=== PATIENT | female | born 1965 | race Caucasian/White ===

== ENCOUNTER 2016-11-21 11:34 | Observation (INO) | payer BC ==
[~2016-11-21] VITALS: Ht 157.5 cm; Wt 88.3 kg
--- NOTE | ~2016-11-21 | ECH ---
Transthoracic Echocardiography Report (TTE) Demographics Patient Name MG LAYNE Date of Study 11/22/2016 Patient Number [id number] Visit Number [id number] Date of 1965 Room Number 433 Accession Number [id number] Gender Female Age 51 year(s) Referring Kareem PICKERING Burn Crew Member Maryjane Easley [facility] Physician Regulo Arshad MD Physician Interpreting Dolores Grayson MD Molding And Trim Installer Physician Supervising Ordering Physician Kareem PICKERING MD/CARLITOS Rajput Nurse Stress Manager Decision Support Conclusions Summary Technically fair exam. The estimated left ventricular ejection fraction is 60-65%. Mild left ventricular hypertrophy. Diastolic assessment reveals Grade I diastolic dysfunction. The left atrium is mildly dilated by LA volume index measurement. Procedure Type of Study TTE procedure:Echo Complete SF. Procedure Date Date: 11/22/2016 Start: 09:38 AM Technical Quality: Adequate visualization Indications:Chest pain. Appropriate Use Criteria: 9 Height: 62 inches Weight: 190 pounds BSA: 1.87 m Rhythm: Within normal limits HR: 78 bpm BP: 128/71 mmHg M-Mode/2D Measurements LV Diastolic Dimension: 4.8 cm LV Systolic Dimension: 3.2 cm LV Septum Diastolic: 1 cm LV PW Diastolic: 1.2 cm AO Root Dimension: 2.76 cm Cardiac Output: 5.05 l/min LA Dimension: 3.5 cm Cardiac Index: 2.7 l/min*m LA volume index: 35 ml/m LVOT: 1.8 cm RV Base: 3 cm LVOT VTI: 25.46 cm RV Mid: 1.7 cm LV Stroke volume: 64.75 ml RV Length: 7.1 cm LV Stroke volume index: 34.63 ml/m Doppler Measurements AV Peak Velocity: 1.76 m/s MV Peak E-Wave: 0.78 m/s AV Peak Gradient: 12.39 mmHg MV Peak A-Wave: 0.89 m/s AV Mean Gradient: 6.3 mmHg MV E/A Ratio: 0.88 LVOT Peak Velocity: 1.26 m/s MV P1/2t: 57.3 msec AV Area (Continuity):2.14 cm MV Deceleration Time: 178.2 msec MV Area (PHT): 3.84 cm PV Peak Velocity: 0.9 m/s PV Peak Gradient: 3.24 mmHg RA Area: 12.88 cm Findings Left Ventricle The left ventricle is normal in size . Mild left ventricular hypertrophy. Diastolic assessment reveals Grade I diastolic dysfunction. Right Ventricle Normal right ventricle structure and function. Left Atrium The left atrium is mildly dilated by LA volume index measurement. Right Atrium Normal right atrial size. Mitral Valve Normal mitral valve structure and function. Aortic Valve The aortic valve was not well imaged. Tricuspid Valve Normal tricuspid valve structure and function. Pulmonic Valve The pulmonic valve is not well visualized. Pericardial Effusion No evidence of pericardial effusion. Miscellaneous Visualized portions of the aortic root and ascending aorta appear normal in size. Pleural Effusion No evidence of pleural effusion. Signature
--- NOTE | ~2016-11-21 | CST ---
Cardiac Perfusion Imaging Demographics Patient Name ROVERTO Trejo Gender Female Patient Number [id number] Race Visit Number [id number] Ethnicity Corporate ID Room Number 433 Accession Number [id number] Height 62 inches Date of 1965 Weight 190 pounds Age 51 year(s) BSA 1.87 m Referring Physician Rosario Arshad MD BMI 34.75 kg/m Interpreting Physician [facility] Date of study 11/22/2016 Dolores Grayson MD Supervising MD/MLP Wes Rose [facility] Technologist Micki Honeycutt Ordering Physician Kareem Rajput Stress Royce Cordovaen alarm technician Stress ECG Reading [facility] Nurse Mumtaz Ghotray Physician Dolores Javed The procedure was explained in detail to the patient. Risks, complications and alternative treatments were reviewed. Written consent was obtained. Medications Reviewed with Patient prior to Procedure. Procedure Procedure Type: Nuclear Stress Test:Exercise Procedure Start time: 11/22/2016 08:00 Indications: Chest pain, Hypertension, Family history of coronary artery disease and Tobacco use-current. Risk Factors The patient risk factors include:Current/Recent(w/in 1 year) tobacco use, treated hypertension and family history of premature CAD. Conclusions Summary Perfusion Images: The overall quality of the study is good. Left ventricular cavity is noted to be normal on the stress and rest studies. There is no evidence of abnormal lung activity. The right ventricle is not visualized and cannot be assessed. Stress SPECT images and Rest SPECT images demonstrate homogenous tracer distribution throughout the myocardium except for a decrease uptake in the area involving the anterior wall consistent with soft tissue attenuation. Gated SPECT imaging reveals normal myocardial thickening and wall motion. The left ventricular ejection fraction was calculated to be 80%. Impression ECG portion of stress test is clinically negative for ischemia by diagnostic criteria. Myocardial perfusion imaging is normal. The anterior wall matched defect is consistent with soft tissue attenuation. Overall left ventricular systolic function was normal without regional wall motion abnormalities. Compared to the prior study from 2013, the current study reveals no change . Stress Protocols Resting ECG Normal sinus rhythm. Resting HR:75 bpm Resting BP:118/78 mmHg Stress Protocol:Exercise - Justin Peak HR:153 bpm HR/BP product:[id number] Peak BP:186/80 mmHg Max exercise: 10 METS Predicted HR: 168 bpm % of predicted HR: 91 Test duration:08:06 min Reason for termination:Fatigue ECG Findings No ECG changes suggestive of ischemia. Arrhythmias No rhythm abnormality. Complications Procedure complication: None. Stress Interpretation Appropriate hemodynamic response to exercise. No significant ST-T wave changes with exercise. EKG portion is negative for ischemia by diagnostic criteria. The Lynhc Treadmill score was 8 .This corresponds to a low risk stress test. Imaging Results Summed scores - Summed stress score: 0 - Summed rest score: 0 - Summed difference score: 0 Stress ejection Ejection fraction:80 % EDV :89 ml ESV :18 ml Stroke volume :71 ml LV mass :126 gr Imaging Protocols Rest Stress Isotope:Tc99m Myoview IV Isotope: Tc99m Myoview IV Isotope dose:10.5 mCi Isotope dose:30.8 mCi Date:11/22/2016 06:30 Date:11/22/2016 08:00 Technique: SPECT Technique: Gated Supine SPECT Supine IV remains in place after procedure. Scan Time:45-60 minutes post Scan Time:15-30 minutes post injection injection Medical History Admission Data Admission date: 11/21/2016 Admission Time: 13:40 Hospital Status: Inpatient. Signatures
--- NOTE | 2016-11-22 15:13 | CO ---
ADMIT: 11/21/2016 RM/LOC: 433 [facility] MR#: [id number] [address] [address] [place] [address] Consultation SEX: F AGE: 51 : 1965 DATE OF CONSULTATION: 11/21/2016 ATTENDING PHYSICIAN: Luiz Ponce CONSULTING PHYSICIAN: Regulo Serna MD REASON FOR CONSULTATION: Chest pain. HISTORY OF PRESENT ILLNESS: Mg is a pleasant 51-year-old female, who I was asked to see in consultation by Dr. Ponce regarding chest pain. Mg has no prior cardiac history, but does have history of smoking and hypertension. She also has a family history of coronary artery disease with her father having NV in his 40s. He ultimately of cancer, though. She states that she has never had chest pain like this, but this morning she awoke, she stated it felt like a burning heartburn-type discomfort in her chest. She denied any shortness of breath. She denied any diaphoresis. She said nothing made it better. She got up, walked around, it did not make a difference, position did not make a difference and any medications did not help. After about 7 hours of chest pain, she was noted to present to the emergency room. There, her EKG was normal. Her cardiac enzymes were negative and she was admitted for rule out. PAST MEDICAL HISTORY: 1. Hypertension. 2. Smoking. PAST SURGICAL HISTORY: History of appendectomy, tonsillectomy, and hysterectomy. ALLERGIES: SKELAXIN, WHICH CAUSES A RASH. MEDICATIONS: She is on: 1. Lisinopril. 2. Losartan/hydrochlorothiazide 50/12.5 mg daily. SOCIAL HISTORY: She is . She has 5 children and 10 grandchildren. She does smoke. She denies any significant alcohol use other than occasional glass of wine. She denies any illicit drug use. FAMILY HISTORY: Positive for heart disease as described on her father's side and in her father at age 42. Denies any family history of diabetes. Her father also had cancer. REVIEW OF SYSTEMS: GENERAL: Denies fatigue, fever, chills, sweats, rash, or weight loss. EYES: Denies double vision, blurred vision, cataracts, or glaucoma. ENT: Denies hearing loss or problems with nose, mouth or throat. PULMONARY: Denies cough, sputum production, asthma, emphysema or bronchitis. Denies snoring loudly, wakefulness at night, or fatigue upon awakening. GASTROINTESTINAL: Denies heartburn or difficulty swallowing. No change in ADMIT: 11/21/2016 RM/LOC: 433 [facility] MR#: [id number] [address] [id number] [place] [address] Consultation SEX: F AGE: 51 : 1965 bowel habits. Denies dark or bloody stools. No history of ulcers, hiatal hernia, or gallbladder or liver disease. GENITOURINARY: Denies dysuria, hematuria, nocturia, urinary tract infection, or kidney stones. Denies history of renal insufficiency or failure. MUSCULOSKELETAL: Denies history of arthritis or gout. Denies muscle or joint pains. ENDOCRINE: Denies history of thyroid dysfunction or diabetes. HEMATOLOGIC: Denies history of anemia, easy bruising, or cancer. NEUROLOGIC: Denies chronic headaches, dizziness, syncope, stroke, seizures or numbness or tingling. PSYCHIATRIC: Denies history of mental illness or feelings of depression. PHYSICAL EXAMINATION: VITAL SIGNS: Blood pressure 128/71, pulse 75, temperature 98.7, respirations 16, oxygen 93% on room air. SKIN: [place], warm and dry. EYES: Sclerae clear. No xanthelasmas. ENT: Oral mucosa is pink and moist. No jugular venous distention or carotid bruits. CHEST: Respirations are even and unlabored. Lungs are clear to auscultation. HEART: Regular rate and rhythm. Normal S1, S2. No murmurs, rubs or gallops. ABDOMEN: Soft and nontender. MUSCULOSKELETAL: Gait is normal. EXTREMITIES: Peripheral pulses palpable. No clubbing, cyanosis or edema. PSYCHIATRIC: Alert and oriented. Mood and affect are appropriate. DIAGNOSTIC DATA: EKG was normal. Troponin less than 0.015. CK 138, MB 1.3. Creatinine 0.6, potassium 4.0. Chest x-ray was unremarkable. IMPRESSION AND PLAN: 1. Chest pain. Her EKG is normal and her enzymes are okay after 7 hours of chest pain that was constant. She was given a GI cocktail and nitroglycerin and she states the chest pain essentially resolved. We will check an echocardiogram. If her echo is normal, I would recommend that we risk stratify with the treadmill nuclear stress test. If her enzymes become positive or she has EKG changes, we would consider proceeding with cardiac catheterization. 2. Smoking. Discussed smoking cessation. 3. Hypertension. Continue her on losartan/hydrochlorothiazide. Regulo Serna MD/ luis antonio JOB #: [id number] CC: Luiz Ponce, Attending Physician Luiz Ponce, Family Physician
[2016-11-23] MEDS ORDERED: ASPIRIN EC81 MG PO (09:49)
[2016-11-23] MEDS ORDERED: LOSARTAN-HCTZ1 EAC2 PO (09:49)
[2016-11-23] MEDS ORDERED: ZANTAC 7575 MG PO (09:50)
--- NOTE | 2016-11-26 21:28 | ER ---
ADMIT: 11/21/2016 RM/LOC: 433 [facility] MR#: [id number] [address] [address] [place] [address] Emergency Room Report SEX: F AGE: 51 : 1965 DATE: 11/21/2016 ADDENDUM: A 51-year-old female, comes in complaining of chest pain. This chest pain began this morning. It has been waxing and waning in severity, but has never completely gone away since it started this morning. She describes as a heaviness in the center of her left side of her chest that goes to her shoulder, and she has some tingling in left arm. States she has been a little short of breath with this, but no nausea. No diaphoresis. She has not had chest pain problems in the past. She did have a stress test done which she tells me is about 3 to 4 years ago, was normal at that time. She has no personal cardiac history, but she does take blood pressure medication and she has been a lifelong smoker. She reports that her dad had a heart attack prior to the age of 50, and all the males on her dad's side of the family have heart problems. REVIEW OF SYSTEMS: Ten-point review of systems is done and otherwise negative. PAST MEDICAL HISTORY: Significant for hypertension. PREVIOUS SURGERIES: Cholecystectomy, hysterectomy, and tonsillectomy. MEDICATIONS: Lisinopril. ALLERGIES: SEE NURSE'S NOTE. SOCIAL HISTORY: Smokes half pack a day. PHYSICAL EXAMINATION: GENERAL: The patient is alert, in no distress. HEENT: Head is atraumatic. HEART: Regular rate and rhythm. LUNGS: Clear to auscultation. ABDOMEN: Soft. MOTOR AND NEURO: Grossly normal in all 4 extremities. She has good pulses in all 4 extremities. She has no pedal edema. No calf tenderness. SKIN: Warm and dry, not diaphoretic. IMAGING: Chest x-ray shows nothing acute. LABORATORY DATA: CBC, chemistries were unremarkable. First set of cardiac enzymes is normal. EKG shows sinus rhythm, rate of 74. No signs of ST- ADMIT: 11/21/2016 RM/LOC: 433 [facility] MR#: [id number] [address] [address] [address] [place] [address] Emergency Room Report SEX: F AGE: 51 : 1965 elevation or acute NE. EMERGENCY DEPARTMENT COURSE: We went ahead and did the cardiac routine on the patient as her symptoms were concerning for possibly being cardiac in nature. She did get nitroglycerin while in the Emergency Department, and she had complete resolution of her chest heaviness or pressure with the nitroglycerin. We did place an inch of nitroglycerin paste and she feels much better. Plan at this time is to admit the patient for further cardiac workup. I spoke to Dr. Carranza as she normally sees Dr. Ponce. The patient is admitted in stable and improved condition. DIAGNOSIS: Chest pain. Jayy Yo MD/ luis antonio JOB #: [id number] CC: Luiz Ponce MD, Attending Physician Luiz Ponce MD, Family Physician
--- NOTE | 2016-11-27 07:57 | HP ---
ADMIT: 11/21/2016 RM/LOC: 433 [facility] MR#: [id number] [address] [address] [place] [address] History and Physical SEX: F AGE: 51 : 1965 DATE OF SERVICE: CHIEF COMPLAINT: Chest pain. HISTORY OF PRESENT ILLNESS: The patient is a 51-year-old white female, who is normally a patient of Dr. Ponce. She presented to the emergency room today after having left substernal chest pain which radiated up into her left shoulder. The pain was worse with exertion. She also had mild nausea with this. No vomiting noted. No dizziness, palpitations, diaphoresis, or shortness of breath. Upon arrival to the emergency room, she was given 3 sublingual nitroglycerin with complete relief of her discomfort. She is a smoker of nearly 30 years. Cardiac enzymes and EKGs through the emergency room were negative. She does have a history of hypertension and tobacco abuse. There is also a strong family history of coronary artery disease in her father. She is therefore kept for further evaluation and cardiac evaluation for this chest pain. PAST MEDICAL HISTORY: ALLERGIES: SKELAXIN WHICH CAUSED HIVES. HEALTH PROBLEMS: The patient has a history of hypertension, obesity, and tobacco abuse. MEDICATIONS: Hyzaar 50/12.5 mg once daily for blood pressure. FAMILY HISTORY: Includes father with cerebrovascular disease, heart disease, diabetes, hypertension, and kidney cancer. SOCIAL HISTORY: The patient smokes approximately 1 pack of cigarettes every 2 to 3 days. Has been a smoker for 30 years. 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 She drinks approximately 6 cups a coffee per day along with 24 ounces of soda. Occasional alcohol use. SURGICAL HISTORY: The patient has had tonsillectomy, hysterectomy, and cholecystectomy. REVIEW OF SYSTEMS: HEENT: The patient currently has a mild headache secondary to the nitroglycerin paste. Otherwise, denies visual changes, ear pain, sinus symptoms, sore throat, or difficulty swallowing. CARDIAC: No history of heart disease, but does have a history of hypertension. She has the above-described chest pain in the left upper chest radiating into the left shoulder. Pain is now resolved. No palpitations noted. RESPIRATORY: No shortness of breath, cough, or wheezing. Does have a history of smoking. GASTROINTESTINAL: Mild nausea, but no vomiting, abdominal pain, diarrhea, or constipation. GENITOURINARY: No hematuria, urinary frequency, or dysuria. No prior history ADMIT: 11/21/2016 RM/LOC: 433 [facility] MR#: [id number] [address] [place] [address] MG LAYNE [address] [place] [address] History and Physical SEX: F AGE: 51 : 1965 of bladder or kidney problems. MUSCULOSKELETAL: She has had some swelling in her hands and feet. No unusual muscle or joint aches and pains. NEUROLOGIC: No history of strokes or seizures. ENDOCRINE: No history of diabetes or thyroid problems. PSYCHIATRIC: History of depression or anxiety. PHYSICAL EXAMINATION: VITAL SIGNS: Include a temperature of 98.7, pulse 75 and regular, respiratory rate 16, blood pressure 128/71, O2 saturations 93% on room air. GENERAL: The patient is alert and oriented. She does not appear to be in acute distress. Chest pain is resolved. HEENT: Ears are clear bilaterally. Oropharynx moist without erythema or tonsillar enlargement. Pupils are equally round and reactive to light and accommodation bilaterally. NECK: Supple without lymphadenopathy or JVD. No thyroid enlargement or tenderness. LUNGS: Clear bilaterally without wheezes, rhonchi, or rales. HEART: Regular rate and rhythm without murmur, rub, or gallop. ABDOMEN: Obese, but soft, nontender, and nondistended. No masses palpated. EXTREMITIES: Show some puffiness in the fingers and 1+ edema in the lower legs and ankles. She moves all extremities without problems. SKIN: No jaundice, cyanosis, or rash. NEUROLOGIC: No focal deficits. LABORATORY AND X-RAY DATA: Admission EKG showed no acute ST or T-wave changes. White blood cell count was 7.6, hemoglobin 15.0, platelet count 216. Admission sodium 141, potassium 4.0, BUN 8, creatinine 0.6, glucose 94, magnesium 2.0, creatine kinase 138, MB 1.3, relative index 0.9. Troponin I less than 0.015. Chest x-ray was negative/normal. ASSESSMENT: ADMIT: 11/21/2016 RM/LOC: [address] [place] [address] MR#: [id number] [address] [place], [place] [id number] [place] [address] History and Physical SEX: F AGE: 51 : 1965 1. Chest pain. 2. Hypertension. 3. Tobacco abuse. 4. Obesity. PLAN: The patient has been admitted for cardiac workup. We will do serial cardiac enzymes. Cardiology has seen this patient in consultation and plans on an echocardiogram and stress test to be done. We will check her cholesterol status with labs in the morning. We will continue her home medications. Regulo Carranza MD/ luis antonio JOB #: [id number] CC: Luiz Ponce, Attending Physician Luiz Ponce, Family Physician uLiz Ponce MD
== END 2016-11-22 13:40 | disposition home or self-care (01) ==
LOC: ER 11:34 → 4PCU 13:40
PROVIDERS: ADMIT Family Medicine
DX: R07.9 Chest pain, unspecified (principal); I10 Essential (primary) hypertension; F17.200 Nicotine dependence, unspecified, uncomplicated; Z82.49 Family history of ischemic heart disease and other diseases of the circulatory system; Z90.49 Acquired absence of other specified parts of digestive tract; Z98.890 Other specified postprocedural states; Z88.8 Allergy status to other drugs, medicaments and biological substances; Z79.899 Other long term (current) drug therapy